=== PATIENT | male | born 1980 ===

== ENCOUNTER 2018-03-15 15:16 | Emergency (ER) | payer BC ==
[2018-03-15] MEDS ORDERED: Oxycodone/Acetaminophen 5/325 mg Tab PO STA (16:28)
[2018-03-15] MEDS ORDERED: Oxycodone/Acetaminophen 5/325 mg Tab ONE (16:46)
--- NOTE | 2018-03-15 17:51 | ED PDOC ---
HPI: Headache Time Seen by Provider: 03/15/18 16:16 Chief Complaint (Nursing): Headache Chief Complaint (Provider): Headache, Eye Pain History Per: Patient History/Exam Limitations: no limitations Onset/Duration Of Symptoms: Days (x1 week) Current Symptoms Are (Timing): Still Present Additional Complaint(s): 38 year old male presents to the ED for evaluation of worsening right sided head pressure for the past week which developed into a headache and right eye pain associated with photophobia to the affected eye. Patient reports that right before the onset of symptoms, he had his right upper wisdom tooth removed to which he has been using Tylenol and Ibuprofen for pain management with minimal relief. Additionally, he notes he was not given any antibiotics s/p procedure. At this time, patient offers no other complaints and denies syncope, fever, nausea, and vomiting. PMD: none provided Past Medical History Reviewed: Historical Data, Nursing Documentation, Vital Signs Vital Signs: Last Vital Signs Temp 98.4 F 03/15/18 15:42 Pulse 104 H 03/15/18 15:42 Resp 20 03/15/18 15:42 BP 153/97 H 03/15/18 15:42 Pulse Ox 98 03/15/18 15:42 - Medical History PMH: No Chronic Diseases - Surgical History Other surgeries: wisdom teeth extraction - Family History Family History: States: Unknown Family Hx - Social History Current smoker - smoking cessation education provided: No Alcohol: None Drugs: Denies - Home Medications Home Medications: Ambulatory Orders Medication Instructions Recorded Amoxicillin/Clavulanate [Augmentin 1 tab PO BID #20 tab 03/15/18 875 MG-125 MG] - Allergies Allergies/Adverse Reactions: Allergies Allergy/AdvReac Type Severity Reaction Status Date / Time No Known Allergies Allergy Verified 03/15/18 15:42 Review of Systems ROS Statement: Except As Marked, All Systems Reviewed And Found Negative Constitutional: Negative for: Fever Eyes: Positive for: Pain (right), Other (photophobia right eye) Gastrointestinal: Negative for: Nausea, Vomiting Neurological: Positive for: Headache. Negative for: Other (Syncope) Physical Exam - Reviewed Nursing Documentation Reviewed: Yes Vital Signs Reviewed: Yes - Physical Exam Appears: Positive for: Well, No Acute Distress Head Exam: Positive for: ATRAUMATIC, NORMOCEPHALIC Skin: Positive for: Normal Color, Warm, Dry Eye Exam: Positive for: EOMI, PERRL, Other (squinting eyes secondary to photophobia) ENT: Positive for: Sinus Pain/Drainage (tenderness to palpation over right maxillary and frontal sinuses) Neck: Positive for: Normal, Painless ROM, Supple Cardiovascular/Chest: Positive for: Regular Rate, Rhythm Respiratory: Positive for: Normal Breath Sounds. Negative for: Respiratory Distress Neurologic/Psych: Positive for: Alert, Oriented (x3) - ECG O2 Sat by Pulse Oximetry: 98 (RA) Pulse Ox Interpretation: Normal Medical Decision Making Medical Decision Making: Time: 162 Initial Impression: sinusitis vs periorbital cellulitis Initial Plan: --CT Head w/o constrast --BMP --CBC with differential --Percocet 1 tab --Reglan 10mg IVP --Reevaluation Scribe Attestation: Documented by Vivi Baldwin acting as a scribe for Alyson Blair MD. Provider Scribe Attestation: All medical record entries made by the Scribe were at my direction and personally dictated by me. I have reviewed the chart and agree that the record accurately reflects my personal performance of the history, physical exam, medical decision making, and the department course for this patient. I have also personally directed, reviewed, and agree with the discharge instructions and disposition. 1940: CT shows sinusitis. Labs otherwise WNL. PT to be started on Amoxicillin/Clauvulantate and will get rx for the same. PT to follow up with PMD in one week. Return parameters discussed. Disposition - Clinical Impression Clinical Impression: Sinusitis - Disposition Disposition: Routine/Home Disposition Time: 19:43 Condition: IMPROVED Additional Instructions: Take antibiotics as prescribed. Follow up with primary medical doctor in one week. Return to the emergency department if symptoms worsen or if new symptoms develop. Prescriptions: Amoxicillin/Clavulanate [Augmentin 875 MG-125 MG] 1 tab PO BID #20 tab Instructions: Sinusitis, Adult (DC) Forms: [employer] (Romansh) Print Language: [place]IZ[place]
--- NOTE | 2018-03-15 18:17 | CT ---
Date of service: 03/15/2018 PROCEDURE: CT HEAD WITHOUT CONTRAST. HISTORY: eye pain, SOLIS, r. nasal drainage s/p tooth extract COMPARISON: None available. TECHNIQUE: Axial computed tomography images were obtained through the head/brain without intravenous contrast. Radiation dose: Total exam DLP = 907.8 mGy-cm. This CT exam was performed using one or more of the following dose reduction techniques: Automated exposure control, adjustment of the mA and/or kV according to patient size, and/or use of iterative reconstruction technique. FINDINGS: HEMORRHAGE: No intracranial hemorrhage. BRAIN: Normal cabrera-white matter differentiation and density are appreciated throughout the cerebrum and cerebellum with the brainstem appearing unremarkable as well. There is no mass effect. There is no suspicious extra-axial fluid collection and the midline brain anatomy appears diffusely unremarkable. No atrophy or chronic microvascular ischemic changes. VENTRICLES: Unremarkable. No hydrocephalus. CALVARIUM: No fracture of the calvarium is identified however there bowing of the lamina papyracea medially suggesting fracture of indeterminate age, possibly chronic as there is no facial edema appreciated, particularly at the left orbit. PARANASAL SINUSES: There is complete opacification of the right maxillary sinus and the majority of right ethmoid air cells with a small polyp or cyst noted at the left maxillary sinus superiorly. Limited left ethmoid sinus disease identified. Prominent right frontal sinusitis also noted. There is a small defect at the alveolar recess floor of the right maxillary sinus potentially related to to extraction of a molar. Clinically correlate. MASTOID AIR CELLS: Unremarkable as visualized. No inflammatory changes. OTHER FINDINGS: None. IMPRESSION: Normal CT imaging of the brain. Extensive sinusitis affects the right maxillary greater than frontal and ethmoid sinuses as discussed above. Cortical defect at the alveolar recess portion of the right maxillary sinus posteriorly may be related to molar extraction. Clinically correlate as to the location of the recent apparent tooth extraction. It is unclear whether this would cause the clinical pattern of rhinorrhea described in the indication for this CT. Further clinical correlation is recommended. Left lamina papyracea fracture, potentially chronic. Clinically correlate further.
[2018-03-15] MEDS ORDERED: Amoxicillin-Clav 500-125 mg Tab PO ONE (20:00)
[2018-03-15 20:14] VITALS: BP 130/73; PULSE 89; RESP 18; TEMP 99.1
[2018-03-19 22:54] VITALS: O2SAT 98
== END 2018-03-15 20:10 | disposition home or self-care (01) ==
LOC: H.ER 15:16
DX: J32.2 Chronic ethmoidal sinusitis (principal)
CPT/HCPCS: 70450; 96374; 99285; J2765